=== PATIENT | female | born 1950 | race Caucasian/White ===

== ENCOUNTER 2017-01-31 17:13 | Emergency (ER) | payer OTHER ==
[~2017-01-31] VITALS: Ht 144.8 cm; Wt 72.6 kg
[~2017-01-31 17:13] MED LIST: CHLORTHALIDONE25 MG PO; LIPITOR20 MG PO; LOSARTAN POTAS100 MG PO; TOPROL XL25 MG PO
[2017-01-31 17:32] VITALS: BP 134/69
--- NOTE | 2017-01-31 17:52 | NUR ---
Patient ambulated to bed 2 with family. RN evaluating patient at bedside.
--- NOTE | 2017-01-31 17:53 | NUR ---
BIB DAUGHTER, DAUGHTER STATES MOTHER HAS BEEN C/O LEFT CALVE PAIN FOR 2 DAYS BUT IT HAS GOTTEN WORSE TODAY, CALVE WARM TO TOUCH AND SLIGHTLY SWOLLEN, PT. AMBULATORY WITH LIMP, PT. AAOX4, BREATHING EVEN AND UNLABORED, PT. POSITIONED FOR COMFORT, WILL CONTINUE TO MONITOR
--- NOTE | 2017-01-31 18:18 | NUR ---
US tech at bedside for exam.
[2017-01-31 18:57] VITALS: BP 134/69
--- NOTE | 2017-01-31 18:57 | NUR ---
Patient discharged with v/s stable. Written and verbal after care instructions given and explained. Patient alert, oriented and verbalized understanding of instructions. Ambulatory with LIMP ASSISTED BY DAUGHTER, REFUSED WHEELCHAIR. All questions addressed prior to discharge. ID band removed. Patient advised to follow up with PMD. Rx of MOTRIN AND TRAMADOL given. Patient educated on indication of medication including possible reaction and side effects. Opportunity to ask questions provided and answered.
== END 2017-01-31 18:57 | disposition home or self-care (01) ==
LOC: MED 17:13
DX: R25.2 Cramp and spasm (principal); I10 Essential (primary) hypertension; Z79.899 Other long term (current) drug therapy
CPT/HCPCS: 36415; 80053; 85025; 85610; 85730; 93971; 99285; Q0092

== ENCOUNTER 2021-02-16 09:04 | Emergency (ER) | payer OTHER ==
[~2021-02-16] VITALS: Ht 152.4 cm; Wt 77.1 kg
[~2021-02-16 09:04] MED LIST changes: +ATOR20TA PO; +CHLO25TA33 PO; -CHLORTHALIDONE25 MG PO; -LIPITOR20 MG PO; +LOSA100T51 PO; -LOSARTAN POTAS100 MG PO; +METO25TE2 PO; -TOPROL XL25 MG PO
[2021-02-16 09:06] VITALS: BP 156/79
[2021-02-16] MEDS ORDERED: TRAM50TA3 PO (09:33)
[2021-02-16 09:55] VITALS: BP 156/79
== END 2021-02-16 09:55 | disposition home or self-care (01) ==
LOC: MED 09:04
DX: M79.662 Pain in left lower leg (principal); I11.9 Hypertensive heart disease without heart failure; E78.00 Pure hypercholesterolemia, unspecified
CPT/HCPCS: 99283